=== PATIENT | male | born 1950 | race Caucasian/White ===

== ENCOUNTER → 2018-08-07 10:29 | Outpatient (CLI) | payer OTHER, SELFPAY ==
--- NOTE | 2018-08-07 | DI.RAD.S_ITS ---
PROCEDURE: XR CERVICAL SPINE 4V OR 5V INDICATIONS: CERVICALGIA TECHNIQUE: 5 views of the cervical spine acquired. COMPARISON: None. FINDINGS: Bones: No fractures or dislocations to the T1 level. Straightening of the normal cervical lordosis and grade 1 retrolisthesis of C3 on C4 and grade one anterolisthesis of C4 on C5. Grade 1 retrolisthesis of C5 on C6. Diffuse facet arthropathy. Severe narrowing of the C5-C6 and C6-C7 disc spaces as well as the C7-T1 disc space. There is moderate narrowing of the C2-C3 and C3-C4 disc space. There are diffuse moderate to severe bony foraminal stenoses bilaterally at all cervical spine levels, with relative sparing of the right C4-C5 neural foramen. Soft tissues: No prevertebral soft tissue swelling. IMPRESSION: Multilevel cervical disc degeneration most pronounced at C5-C6 and C6-C7 as detailed above, and facet arthropathy. Diffuse bilateral bony foraminal stenoses throughout the entire cervical spine Dictated by: Jayden Fernandez M.D. on 08/07/2018 at 12:20 Approved by: Jayden Fernandez M.D. on 08/07/2018 at 12:23
== END ==
PROVIDERS: PCP Physician Assistant; Visit Provider Physician Assistant
DX: M50.322 Other cervical disc degeneration at C5-C6 level (principal); M47.812 Spondylosis without myelopathy or radiculopathy, cervical region; M48.02 Spinal stenosis, cervical region
CPT/HCPCS: 72050

== ENCOUNTER 2018-08-25 07:52 | Day surgery (SDC) | payer OTHER, SELFPAY ==
--- NOTE | 2018-08-25 | PATH_ITS ---
[facility] Accession Number: [id number] . 01 Material submitted: . PART A: ANTRUM BIOPSY PART B: GE JUNCTION PART C: MID ESOPHAGEAL BIOPSY @15CM . 02 Diagnosis: A. Stomach, Antrum, Biopsy: Antral mucosa with mild chronic gastritis. Negative for Helicobacter by immuonhistochemistry. Negative for intestinal metaplasia. Negative for dysplasia and malignancy. . B. Gastroesophageal Junction, Biopsy: Squamocolumnar junctional mucosa with no diagnostic abnormality. Negative for intestinal metaplasia. Negative for dysplasia and malignancy. . C. Mid Esophagus, Biopsy at 15 cm: Squamocolumnar junctional mucosa with mild chronic inflammation, consistent with inlet patch. Negative for intestinal metaplasia. Negative for dysplasia and malignancy. [facility]/08/27/2018 . 02 Electronically signed: . Kellie Aguirre MD, Pathologist NPI- [id number] . 01 Gross description: . Received three formalin-filled containers, each labeled with the patient's name: . A. In a container labeled antrum, are four 0.1-0.2 cm portions of tissue, entirely submitted in cassette A. B. In a container labeled GE junction, are multiple less than 0.1 cm to 0.2 cm portions of tissue, which are filtered, wrapped, and entirely submitted in cassette B. C. In a container labeled mid esophageal BX at 15 cm, are three 0.1-0.2 cm portions of tissue, entirely submitted in cassette C. ([id number]) /FRR . 02 Microscopic: . A. An immunohistochemical stain was performed to evaluate for Helicobacter organisms and is negative. The control stain showed appropriate reactivity. . * This test was developed and its performance characteristics determined by [employer] [facility] [employer] It has not been cleared or approved by the U.S. Food and Drug Administration. The FDA has determined that such clearance or approval is not necessary. This test is used for clinical purposes. It should not be regarded as investigational or for research. . 02 Pathologist provided ICD-10: R10.9 . 02 CPT . 359673, 069797, 359714, [id number] Performed at: 01 [facility] [address] [place] [address] [id number] MD Jhony Carlton MD Phone: [phone] Performed at: 02 [facility] [address] [place] [address] [id number] MD Umer Murphy MD Phone: [phone]
--- NOTE | 2018-08-25 08:05 | PM.PREOP ---
Pre-operative Note Interval Note Pre-op Check: Yes History & Physical Reviewed by Physician and Yes Exam Performed Changes: No H&P completed within 30 days and has changed as indicated here:: Patient seen in preoperative area. History and physical examination documented and on the chart July 31, 2018 has not changed. Proceed with EGD with biopsy today as planned. ASA Class (for procedural sedation): II
[2018-08-25 08:08] VITALS: BP 171/94; PULSE 76; RESP 17; TEMP 36.8; O2SAT 97; BMI 22.4
[2018-08-25] MEDS: SODIUM CHLORIDE 0.9% 1,000 ML 100 ML IV (08:16)
[2018-08-25] MEDS: MIDAZOLAM 5 MG/5 ML VIAL IV (08:40)
[2018-08-25] MEDS: fentaNYL 250 MCG/5 ML INJ IV (08:41)
[2018-08-25] MEDS: LIDOCAINE 4% SOLN 50 ML 20 ML TOP (08:43)
[2018-08-25] MEDS: TETRACAINE/BENZOCAINE/BUTAMBEN (CETACAINE) BOTTLE 1 SPRAY TOP (08:44)
--- NOTE | 2018-08-25 09:00 | PM.OP.ENDO ---
Operative Date/Time/Diagnoses Date of procedure: 08/25/18 Time of procedure: 09:00 Pre-op diagnosis: History of Mathis's esophagus Post-op diagnosis: other (Gastritis and esophagitis, possibly consistent with Mathis's esophagus) Procedure & Clinicians Study performed: 1. Sedation per surgeon 2. Esophagogastroduodenoscopy with cold forceps biopsies Same procedure as scheduled: Yes Indications: 68-year-old male with personal history of Mathis's esophagus diagnosed many years ago. It has been several years since his last surveillance endoscopy. He is beginning to have some mild swallowing symptoms as well. EGD with biopsy was recommended. Surgeon: Agustin Smallwood Procedure Notes SCOAP/Timeout: Yes Procedure in detail: After obtaining informed consent, the patient was brought to the GI suite and placed in the left lateral decubitus position on the examination table. After placement of appropriate monitors, the patient was given incremental doses of Versed and Fentanyl until an appropriate level of sedation was achieved. A time out was held per SCOAP protocol. A bite block was gently placed between the patient's teeth. The endoscope was lubricated and then passed into the patient's posterior oropharynx. 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 Bilateral vocal cords were fully mobile. Small submucosal cystic structure was noted to be present in the left proximal piriform sinus just below the vallecula. Lesion appeared benign however. Right piriform sinus was normal. There was no overlying mucosal changes associated with the left piriform sinus lesion. The esophagus was cannulated under direct vision and the scope was passed to the second portion of the duodenum without difficulty. Z-line was located 40 cm from the incisors. The scope was then withdrawn with careful examination of all areas of the upper GI tract and mucosa. In the stomach, the instrument was retroflexed and the GE junction examined. The scope was straightened and the procedure continued with examination of the remainder of the upper GI tract. Findings are noted above. Air was aspirated from the stomach and the endoscope gently removed from the esophagus. The patient was allowed to awaken from sedation without difficulty and taken to the post-anesthesia care unit in good condition. Scope withdrawal time: Not applicable Sedation minutes: 15 Findings: Mathis's esophagus (Gross appearance consistent with Mathis's esophagus at gastroesophageal junction) and gastritis Specimen(s): other (1. Antral biopsies 2. Gastroesophageal junction biopsies 3. Midesophageal biopsies at 15 cm from incisors) Complications: none Recommendations: No ASA/NSAIDS, EGD in 3 years (Pending biopsy results) and Continue medication(s) Plan for aftercare: 1. Discharge home Follow up: weeks (Two weeks with Dr. Smallwood) Disposition: PACU
[2018-08-25 09:07] VITALS: BP 130/82; PULSE 62; RESP 10; TEMP 36.9; O2SAT 94
[2018-08-25 09:11] VITALS: BP 124/81; PULSE 61; RESP 10; O2SAT 94
[2018-08-25 09:15] VITALS: BP 132/89; PULSE 73; RESP 15; O2SAT 95
[2018-08-25 09:19] VITALS: PULSE 72; RESP 15; TEMP 36.8; O2SAT 144
== END 2018-08-25 09:41 | disposition home or self-care (01) ==
PROVIDERS: PCP Physician Assistant; Visit Provider Surgery
PROC: 0DJ08ZZ Inspection of Upper Intestinal Tract, Via Natural or Artificial Opening Endoscopic (ICD-10-PCS; CPT 43235; principal; 2018-08-25 08:45)
DX: K29.70 Gastritis, unspecified, without bleeding (principal); K21.0 Gastro-esophageal reflux disease with esophagitis; Z87.19 Personal history of other diseases of the digestive system
CPT/HCPCS: 43239; 99152; J2250; J3010

== ENCOUNTER → 2020-04-14 11:36 | Outpatient (CLI) | payer MEDICARE, SELFPAY ==
[2020-04-14 12:20] LABS: Hematocrit 46.7 % (41-53); Hemoglobin 16.4 g/dL (13.5-17.5); Mean Corpuscular HGB Conc 35.2 % (30-36); Mean Corpuscular Hemoglobin 33.2 PG (26-34); Mean Corpuscular Volume 94.4 fL (80-100); Platelet Count 176 X10^3/uL (150-400); Red Blood Cell Count 4.95 X10^6/uL (4.5-5.9); Red Cell Distribution Width 14.1 % (11.6-14.8); White Blood Cell Count 4.3 X10^3/uL (4.5-11.0)
[2020-04-14 12:46] LABS: C-Reactive Protein Quant < 0.5 mg/dL (<1.0)
[2020-04-14 12:54] LABS: Neutrophils Absolute Manual 2709 /uL (3000-5900); Total Cells Counted 100
[2020-04-14 12:55] LABS: RBC Morphology Normal Morphology
[2020-04-14 12:57] LABS: Erythrocyte Sedimentation Rate 1 MM/HR (0-15)
== END ==
PROVIDERS: PCP Internal Medicine; Referring Provider Internal Medicine; Visit Provider Internal Medicine
DX: M25.50 Pain in unspecified joint (principal)
CPT/HCPCS: 36415; 85025; 85651; 86140

== ENCOUNTER → 2022-12-07 12:04 | Outpatient (CLI) | payer MEDICARE, SELFPAY ==
[2022-12-07 13:17] LABS: Hematocrit 48.6 % (41-53); Hemoglobin 16.3 g/dL (13.5-17.5); Mean Corpuscular HGB Conc 33.4 % (30-36); Mean Corpuscular Hemoglobin 32.4 PG (26-34); Platelet Count 188 X10^3/uL (150-400); Red Blood Cell Count 5.01 X10^6/uL (4.5-5.9); Red Cell Distribution Width 13.9 % (11.6-14.8); White Blood Cell Count 4.6 X10^3/uL (4.5-11.0)
[2022-12-07 13:35] LABS: Alanine Aminotransferase 24 IU/L (<50); Albumin 4.3 g/dL (3.5-5.0); Albumin Globulin Ratio 1.3 (1.0-2.8); Alkaline Phosphatase 59 U/L (38-126); Aspartate Aminotransferase 26 IU/L (17-59); BUN Creatinine Ratio 18.2 (6-22); Bilirubin Total 0.8 mg/dL (0.2-1.3); Blood Urea Nitrogen 14 mg/dL (9-20); Calcium 9.2 mg/dL (8.4-10.2); Carbon Dioxide 30 mmol/L (22-32); Chloride 103 mmol/L (98-107); Cholesterol 262 mg/dL (140-199); Estimated Glomerular Filt Rate > 60 mL/min (>60); Globulin 3.3 g/dL (1.7-4.1); Glucose 92 mg/dL (80-110); HDL Cholesterol 58 mg/dL (40-60); HEMOLYSIS 16 (0-50); LDL Cholesterol Calculated 166 mg/dL (<100); Potassium 5.2 mmol/L (3.4-5.1); Sodium 140 mmol/L (137-145); Total Protein 7.6 g/dL (6.3-8.2); Triglycerides 188 mg/dL (35-150)
[2022-12-07 14:04] LABS: Prostate Specific Antigen 1.88 ng/mL (0.10-4.00); TSH w/ Reflex to FT4 1.79 uIU/mL (0.47-4.68)
== END ==
PROVIDERS: PCP Internal Medicine; Referring Provider Internal Medicine; Visit Provider Internal Medicine
DX: E78.2 Mixed hyperlipidemia (principal); N40.1 Benign prostatic hyperplasia with lower urinary tract symptoms; N13.8 Other obstructive and reflux uropathy
CPT/HCPCS: 36415; 80053; 80061; 84153; 84443; 85027

== ENCOUNTER → 2023-08-13 10:38 | Outpatient (CLI) | payer MEDICARE, SELFPAY ==
[2023-08-13 12:15] LABS: Hematocrit 48.4 % (41-53); Hemoglobin 16.8 g/dL (13.5-17.5); Mean Corpuscular HGB Conc 34.6 % (30-36); Mean Corpuscular Hemoglobin 33.3 PG (26-34); Mean Corpuscular Volume 96.3 fL (80-100); Platelet Count 187 X10^3/uL (150-400); Red Blood Cell Count 5.03 X10^6/uL (4.5-5.9); Red Cell Distribution Width 13.6 % (11.6-14.8); White Blood Cell Count 4.9 X10^3/uL (4.5-11.0)
[2023-08-13 12:58] LABS: Alanine Aminotransferase 24 IU/L (<50); Albumin 4.2 g/dL (3.5-5.0); Albumin Globulin Ratio 1.4 (1.0-2.8); Alkaline Phosphatase 53 U/L (38-126); Aspartate Aminotransferase 30 IU/L (17-59); BUN Creatinine Ratio 21.5 (6-22); Bilirubin Total 0.6 mg/dL (0.2-1.3); Blood Urea Nitrogen 17 mg/dL (9-20); Calcium 9.4 mg/dL (8.4-10.2); Carbon Dioxide 28 mmol/L (22-32); Chloride 105 mmol/L (98-107); Cholesterol 242 mg/dL (140-199); Estimated Glomerular Filt Rate > 60 mL/min (>60); Globulin 3.1 g/dL (1.7-4.1); Glucose 100 mg/dL (80-110); HDL Cholesterol 51 mg/dL (40-60); LDL Cholesterol Calculated 153 mg/dL (<100); Sodium 139 mmol/L (137-145); Total Protein 7.3 g/dL (6.3-8.2); Triglycerides 188 mg/dL (35-150)
[2023-08-13 13:26] LABS: TSH w/ Reflex to FT4 1.62 uIU/mL (0.47-4.68)
[2023-08-13 16:35] LABS: Prostate Specific Antigen 2.58 ng/mL (0.10-4.00)
[2023-08-13 16:37] LABS: HEMOLYSIS 17 (0-50)
== END ==
PROVIDERS: PCP Internal Medicine; Referring Provider Internal Medicine; Visit Provider Internal Medicine
DX: E78.2 Mixed hyperlipidemia (principal); N40.1 Benign prostatic hyperplasia with lower urinary tract symptoms; K59.01 Slow transit constipation; N13.8 Other obstructive and reflux uropathy
CPT/HCPCS: 36415; 80053; 80061; 84153; 84443; 85027

== ENCOUNTER → 2024-04-13 08:56 | Outpatient (CLI) | payer MEDICARE, SELFPAY ==
--- NOTE | 2024-04-13 08:57 | DI.CT.S_ITS ---
PROCEDURE: CT ABDOMEN PELVIS WO/W CON INDICATIONS: Evaluate for intra-abdominal pathology (I am assuming the indication is hematuria.) TECHNIQUE: Optional 5 mm thick noncontrast images acquired from the diaphragm to the symphysis pubis. After the administration of intravenous contrast, 5 mm thick images acquired from the diaphragm to the symphysis pubis after a 10-minute delay. 2 mm thick coronal and sagittal reformats were then performed of the kidneys and ureters. For radiation dose reduction, the following was used: automated exposure control, adjustment of mA and/or kV according to patient size. COMPARISON: [facility], CT, KIDNEY/ URETER/BLADDER, 08/01/2017, 9:29. FINDINGS: Image quality: Diagnostic Lower chest: Scattered scarring and atelectasis. Mildly patulous distal esophagus. Normal heart size. Liver: Posterior liver granuloma Gallbladder and biliary system: Unremarkable, nondilated Pancreas: No ductal dilation Spleen: Nonenlarged Adrenals: No discrete nodules Kidneys: There are punctate nonobstructing renal calculi bilaterally. No solid renal mass. Scattered cysts are present. There are some parapelvic cysts. No complicated or solid lesion requiring dedicated follow-up imaging. No ureter filling defects identified. Subcentimeter lesions are too small to characterize, usually also cysts. Vessels and lymph nodes: The main portal vein is patent. No abdominal aortic aneurysm. No pathologic lymph nodes by size criteria. Bowel and peritoneum: No evidence of small bowel obstruction. No pathologic ascites or drainable abscess. There are colonic diverticula. Body wall: Pelvic wall postsurgical changes. Tiny fat containing umbilical hernia. Pelvis: Calcifications, skin thickening, and possible phleboliths in the right scrotal region and pelvic wall, correlate with clinical exam. A density is seen in the deep inguinal region, possibly from prior hernia repair. TURP changes. No calcified bladder stone. The prostate is heterogeneous and not well evaluated on CT, correlate with PSA. Bones: Degenerative changes. IMPRESSION: Bilateral nonobstructing renal calculi are present. No solid renal mass. No ureter filling defects or hydronephrosis. The lower tracts could be better evaluated cystoscopy in the setting of hematuria. TURP changes. Heterogeneous prostate. Consider also PSA and possible MRI correlation. A stable right deep inguinal density may be from prior hernia repair. Correlate with surgical history. Other findings as above. Dictated by: Trino Mendez M.D. on 04/13/2024 at 15:16 Approved by: Trino Mendez M.D. on 04/13/2024 at 15:26
[2024-04-13 10:11] LABS: BUN Creatinine Ratio 17.3 (6-22); Blood Urea Nitrogen 17 mg/dL (9-20); Carbon Dioxide 31 mmol/L (22-32); Chloride 105 mmol/L (98-107); Estimated Glomerular Filt Rate > 60 mL/min (>60); Glucose 61 mg/dL (80-110); HEMOLYSIS < 15 (0-50); Potassium 4.6 mmol/L (3.4-5.1); Sodium 138 mmol/L (137-145)
== END ==
PROVIDERS: PCP Internal Medicine; Referring Provider Urology; Visit Provider Urology
DX: Q27.9 Congenital malformation of peripheral vascular system, unspecified (principal); N20.0 Calculus of kidney; N28.1 Cyst of kidney, acquired; K57.90 Diverticulosis of intestine, part unspecified, without perforation or abscess without bleeding
CPT/HCPCS: 36415; 74178; 80048; Q9967

== ENCOUNTER → 2024-04-16 09:37 | Outpatient (CLI) | payer MEDICARE, SELFPAY ==
[2024-04-16 10:58] LABS: Aspartate Aminotransferase 29 IU/L (17-59); BUN Creatinine Ratio 15.1 (6-22); Blood Urea Nitrogen 13 mg/dL (9-20); Calcium 8.9 mg/dL (8.4-10.2); Carbon Dioxide 27 mmol/L (22-32); Chloride 108 mmol/L (98-107); Cholesterol 258 mg/dL (140-199); Estimated Glomerular Filt Rate > 60 mL/min (>60); Glucose 105 mg/dL (80-110); HDL Cholesterol 52 mg/dL (40-60); HEMOLYSIS 29 (0-50); LDL Cholesterol Calculated 133 mg/dL (<100); Sodium 139 mmol/L (137-145); Triglycerides 365 mg/dL (35-150)
[2024-04-16 11:28] LABS: Prostate Specific Antigen 2.21 ng/mL (0.10-4.00)
[2024-04-16 11:41] LABS: TSH w/ Reflex to FT4 3.61 uIU/mL (0.47-4.68)
== END ==
LOC: LAB 09:38
PROVIDERS: PCP Internal Medicine; Referring Provider Internal Medicine; Visit Provider Internal Medicine
DX: Z12.11 Encounter for screening for malignant neoplasm of colon (principal); E78.2 Mixed hyperlipidemia; N40.1 Benign prostatic hyperplasia with lower urinary tract symptoms; N13.8 Other obstructive and reflux uropathy
CPT/HCPCS: 80048; 80061; 84153; 84443; 84450

== ENCOUNTER → 2024-04-28 11:20 | Outpatient (CLI) | payer MEDICARE, SELFPAY ==
[2024-05-01 14:17] LABS: Fecal Immunochemical Test Negative (Negative)
== END ==
PROVIDERS: PCP Internal Medicine; Referring Provider Internal Medicine; Visit Provider Internal Medicine
DX: Z12.11 Encounter for screening for malignant neoplasm of colon (principal)
CPT/HCPCS: 82274

== ENCOUNTER → 2024-06-25 09:40 | Outpatient (CLI) | payer MEDICARE, SELFPAY | PROVIDERS: Family Provider Internal Medicine; PCP Internal Medicine; Referring Provider Internal Medicine; Visit Provider Internal Medicine | DX: R20.0 Anesthesia of skin (principal) | CPT/HCPCS: 95886; 95913 ==

== ENCOUNTER → 2025-04-21 11:42 | Outpatient (CLI) | payer OTHER, SELFPAY ==
[2025-04-21 13:06] LABS: Aspartate Aminotransferase 28 IU/L (17-59); BUN Creatinine Ratio 17.2 (6-22); Blood Urea Nitrogen 16 mg/dL (9-20); Calcium 9.3 mg/dL (8.4-10.2); Carbon Dioxide 29 mmol/L (22-32); Chloride 103 mmol/L (98-107); Cholesterol 248 mg/dL (140-199); Estimated Glomerular Filt Rate > 60 mL/min (>60); Glucose 89 mg/dL (70-99); HDL Cholesterol 52 mg/dL (40-60); HEMOLYSIS < 15 (0-50); LDL Cholesterol Calculated 152 mg/dL (<100); Sodium 138 mmol/L (137-145); Triglycerides 222 mg/dL (35-150)
[2025-04-21 13:07] LABS: Potassium 5.4 mmol/L (3.4-5.1)
[2025-04-21 13:35] LABS: Prostate Specific Antigen 2.72 ng/mL (0.10-4.00)
== END ==
PROVIDERS: Family Provider Internal Medicine; PCP Internal Medicine; Referring Provider Internal Medicine; Visit Provider Internal Medicine
DX: E78.2 Mixed hyperlipidemia (principal); N40.1 Benign prostatic hyperplasia with lower urinary tract symptoms; N13.8 Other obstructive and reflux uropathy
CPT/HCPCS: 36415; 80048; 80061; 84153; 84450

== ENCOUNTER → 2025-04-23 09:38 | Outpatient (CLI) | payer OTHER, SELFPAY ==
--- NOTE | 2025-04-23 09:39 | DI.CT.S_ITS ---
PROCEDURE: CT HEAD/BRAIN WO CONTRAST INDICATIONS: mental status changes, transient alteration of consciousness TECHNIQUE: Noncontrast 4.5 mm thick angled axial sections acquired from the foramen magnum to the vertex, with coronal and sagittal reformats. For radiation dose reduction, the following was used: automated exposure control, adjustment of mA and/or kV according to patient size. COMPARISON: None. FINDINGS: Image quality: Diagnostic. Some images are limited by beam hardening artifacts most notably at the base of the skull. Ventricles and cortical sulci are mildly dilated commonly represents a pattern of atrophy. [id number] areas of low-attenuation in the periventricular and deep white matter, basal ganglia and thalami, commonly related to chronic small vessel ischemic changes and chronic lacunar infarcts. No CT evidence of intracranial hemorrhage, mass lesion, mass effect, acute or subacute infarct. The orbits, scalp, calvarium, paranasal sinuses, mastoid air cells, middle ear cavities within normal limits. IMPRESSION: Atrophy and chronic small vessel ischemic changes and/or chronic lacunar infarcts. If symptoms persist or worsen, or there is high clinical suspicion of intracranial abnormality, MRI could be performed. Dictated by: Edgard Cabrera M.D. on 04/23/2025 at 12:12 Approved by: Edgard Cabrera M.D. on 04/23/2025 at 12:19
== END ==
PROVIDERS: Family Provider Internal Medicine; PCP Internal Medicine; Referring Provider Internal Medicine; Visit Provider Internal Medicine
DX: R41.82 Altered mental status, unspecified (principal); Z87.820 Personal history of traumatic brain injury
CPT/HCPCS: 70450

== ENCOUNTER → 2025-05-03 09:03 | Outpatient (CLI) | payer OTHER, SELFPAY | PROVIDERS: Family Provider Internal Medicine; PCP Internal Medicine; Referring Provider Internal Medicine; Visit Provider Internal Medicine | DX: Z12.11 Encounter for screening for malignant neoplasm of colon (principal) | CPT/HCPCS: 82274 ==